=== PATIENT | male | born 1970 | race Caucasian/White ===

== ENCOUNTER 2025-02-27 07:41 | Outpatient (REF) | payer MEDICAID, SELFPAY ==
--- OUTSIDE RECORDS SUMMARY | 2025-02-27 07:44 | XMS_ITS | Patient Health Record ---
Author Organization [facility] Address [address] [place] [address] Care Team Providers Care Corrosion Engineer Name Role Phone NO, PCP Primary Care Provider [facility] Unavailable [phone] Reason For Referral No Information Plan Of Treatment No Information Insurance Providers Payer Name Payer Address Payer Phone Subscriber Number Group Number Insured Name Patient Relationship to Insured Coverage Start Date Coverage End Date [place] Medicaid Standard [address] [place] [phone] [id number] Paul Rodrigez Self - patient is the insured 4
--- OUTSIDE RECORDS SUMMARY | 2025-02-27 07:44 | XMS_ITS | Clinical Summary ---
Author Organization [facility] Address [address] [facility] [address] [place] [address] Care Team Providers Care Acid Operator Name Role Phone Unavailable Primary Care Provider Unavailabl e Encounters * This document contains information received from the source organization and may not represent a complete record from that organization. Date Type Department Care Team Description 12/20/2024 Population Health Risk Score [facility] ([facility]) Department [address] [address] Provider, Population Health Generic from Last 3 Months Social History Tobacco Use Types Packs/Day Years Used Date Smoking Tobacco: Never Assessed Sex and Gender Information Value Date Recorded Sex Assigned at Not on file Legal Sex Male 9:20 PM EDT Gender Identity Not on file Sexual Orientation Not on file Plan of Treatment Health Maintenance Due Date Last Done Comments CT Colonography 1972 Colonoscopy 1972 Colorectal Cancer Screening 1972 Depression Screening 1972 FIT DNA/Cologuard 1972 FIT 1972 FOBT 1972 Lipid Panel 1972 SDOH Screening 1972 Sigmoidoscopy 1972 Disability Screening 1972 Alcohol/Substance Use Screening 1984 Tobacco Screening 1984 Hepatitis C Screening 01/07/1990 Hepatitis B Vaccines (1 of 3 - 19+ 3-dose series) 01/07/1991 Pneumococcal Vaccine: 50+ Years (1 of 2 - PCV) 01/07/1991 COVID-19 Vaccine ( - 2024-2 6 season) 2025 11/13/2020, 10/16/2020 Influenza Vaccine (#1) 2025 DTaP/Tdap/Td Vaccines (3 - T d or Tdap) 08/27/2034 08/27/2024, 01/22/2022 RSV Patients and Patients Aged 60 years or older (1 - 1-dose 75+ series) 01/07/2047 HIV Screening Completed 04/02/2021, 04/02/2021 Zoster Vaccines Completed 06/23/2023, 01/22/2022 HIB Vaccines Aged Out No longer eligi ble based on patient's age to complete this topic HPV Vaccines Aged Out No longer eligi ble based on patient's age to complete this topic Hepatitis A Vaccines Aged Out No long er eligible based on patient's age to complete this topic IPV Vaccines Aged Out No longer eligi ble based on patient's age to complete this topic Meningococcal B Vaccine Aged Out No l onger eligible based on patient's age to complete this topic Meningococcal Vaccine Aged Out No shena poli eligible based on patient's age to complete this topic RSV under 20 months Aged Out No longe r eligible based on patient's age to complete this topic Rotavirus Vaccines Aged Out No longer eligible based on patient's age to complete this topic
--- OUTSIDE RECORDS SUMMARY | 2025-02-27 07:44 | XMS_ITS | Clinical Summary ---
Author Organization [facility] Address [address] [place] [address] Care Team Providers Care Wash Driller Name Role Phone Preston Dozier Primary Care Provider [phone] Source Comments PLEASE NOTE, if this patient is a minor, it may be UNLAWFUL to discuss sensitive information that is contained in these records (such as FAMILY PLANNING, MENTAL HEALTH or SUBSTANCE ABUSE) with the minor patient's parent or other person without the patient's specific authorization.[facility] Allergies No known active allergies Medications naloxone (NARCAN) 4 mg/actuation nasal sprayIndications: Chronic right-sided low back pain without sciatica,Degenera tive disc disease at L5-S1 level Place 1 [place] into the nostril(s) as needed for opioid reversal (Overdose) 1 Each 4 Active docusate sodium (COLACE) 100 mg capsuleIndication s:Constipation, unspecified constipation type Take 1 Capsule by mouth 2 (two) times daily 60 Capsule 1 4 Active SUBOXONE 8-[address] 0.5 Strips under the tongue 2 (two) times daily. Active naproxen (NAPROSYN) 500 mg tabletIndications :Sprain of anterior talofibular ligament of left ankle, initial encounter Take 1 Tablet by mouth 2 (two) times daily with a meal. 180 Tablet 5 Active amoxicillin-pot clavulanate (AUGMENTIN) 875-125 mg per tabletIndications :acute bacterial sinusitis Take 1 Tablet by mouth 2 (two) times daily Indications: acute bacterial infection of the sinuses. 14 Tablet 5 Active predniSONE (DELTASONE) 20 mg tabletIndications :Congested nose,Acute bacterial sinusitis Take 1 Tablet by mouth once daily. 4 Tablet 5 Active fexofenadine-pseu doephedrine (LOREN-D) 60-120 mg per 12 hr tabletIndications :Acute bacterial sinusitis Take 1 Tablet by mouth 2 (two) times daily. 30 Tablet 2 5 Active fluticasone (FLONASE) 50 mcg/actuation nasal sprayIndications: Acute bacterial sinusitis Place 1 [place] in both nostrils once daily. 16 g 5 Active azithromycin (ZITHROMAX) 250 mg tablet Take 2 tabs by mouth today, followed by 1 tab by mouth for four more days.. 6 Tablet 5 Active Active Problems Problem Noted Date Diagnosed Date Lumbar facet arthropathy 05/26/2023 Perifollicular petechiae of skin 12/08/2020 Other slipping, tripping and stumbling without falling, initial encounter 10/23/2019 Other joint derangement, not elsewhere classified, pelvic region and thigh 10/23/2009 Encounters Date Type Department Care Team Description 02/09/2025 4:00 PM EDT Telemedicine Visit [address] [phone] Preston Dozier PA 02/08/2025 Results Follow-Up [address] [phone] David Rangel NP 02/02/2025 11:00 AM EDT Office Visit [facility] [address] [place] [phone] Preston Dozier PA 01/23/2025 Interim Notes [address] [phone] Balbina Jimenez RN 01/20/2025 Interim Notes [address] [phone] Naima Cheney 01/18/2025 3:00 PM EDT Office Visit [address] [phone] David Rangel NP 12/29/2024 Interim Notes [facility] [address] [place] [phone] Preston Dozier PA 12/21/2024 10:40 AM EDT Office Visit [facility] [address] [place] [phone] Preston Dozier PA 12/13/2024 2:00 PM EDT Telemedicine Visit [facility] [address] [place] [phone] Preston Dozier PA 11/30/2024 1:00 PM EDT Office Visit [facility] [address] [facility] [place] [phone] Preston Dozier PA from Last 3 Months Immunizations Immunization Administration Dates Next Due Moderna COVID-19 Vaccine, re d cap blue label, 12+ Primary Series 11/13/2020,10/16/2020 TDAP 08/27/2024,01/22/2022 ZOSTER VACCINE, RECOMBINANT (SHINGRIX) ,01/22/2022 Family History Medical History Relation Name Comments Lung Disease Father Other Sister Relation Name Status Comments Father Alive Mother Alive Sister Alive Social History Tobacco Use Types Packs/Day Years Used Date Smoking Tobacco: Former Cigarettes Smokeless Tobacco: Current Tobacco Cessation:Ready to Q uit: Not Asked; Counseling Given: Not Answered Alcohol Use Standard Drinks/Week Comments Not Currently 0 (1 standard drink = 0.6 oz pur e alcohol) socially Social Connections Answer Date Recorded How often do you see or talk to people that you care about and feel close to? (For example: talking to friends on phone, visiting friends or family, going to restorationist or club meetings) 1 12/21/2024 Financial Resource Strain Answer Date R ecorded Hard to pay for: Utilities 2 12/21 Stress Answer Date Recorded Do you feel these kinds of stress these days? 2 12/21/2024 Physical Activity Answer Date Recorded Weekly Physical Activity 1 025 Food Insecurity Answer Date Recorded Within the past 12 months, y ou worried that your food would run out before you got money to buy more. 2 12/21/2024 Transportation Needs Answer Date Record ed Hard to pay for: Transportation 1 12/21/2024 Housing Stability Answer Date Recorded Hard to pay for: Rent/Mortgage payment 2 12/21/2024 Safety and Environment Answer Date Jewel rded How often does anyone, inclu ding family and friends, physically hurt you? 1 12/21/2024 Utilities Answer Date Recorded Hard to pay for: Utilities 2 12/21 Employment Answer Date Recorded Are you currently employed? 1 11/30 Sex and Gender Information Value Date Recorded Sex Assigned at Male 04/01/2021 5:28 AM PDT Legal Sex Male 1:15 PM PDT Gender Identity Male 04/01/2021 5:28 AM PDT Sexual Orientation Don't know 04/01/2021 5: 28 AM PDT Last Filed Vital Signs Vital Sign Reading Time Taken Comments Blood Pressure 108/65 02/02/2025 11:05 AM EDT Pulse 62 02/02/2025 11:05 AM EDT Temperature 36.8 C (98.2 F) 02/02/2025 11:05 AM EDT Respiratory Rate 16 02/02/2025 11:05 AM EDT Oxygen Saturation 98% 02/02/2025 11:05 AM EDT Inhaled Oxygen Concentration - - Weight 69.9 kg (154 lb) 02/02/2025 11:05 AM EDT Height 182.9 cm (6') 02/02/2025 11:05 AM EDT Body Mass Index 20.89 02/02/2025 11:05 AM EDT Plan of Treatment Upcoming Encounters Date Type Department Care Team (Late st Contact Info) Description 02/28/2025 4:00 PM EDT Office Visit [facility] [address] [place] [phone] Preston Dozier PA [address] [place] [address] 03/28/2025 4:00 PM EDT Office Visit [facility] [address] [facility] [place] [phone] Preston Dozier PA [address] [place] [address] Health Maintenance Due Date Last Done Comments Urine Drug Screen 1972 Imm-Pneumococcal 50+ (1 of 2 - PCV) 01/07/1991 CT Colonography 01/07/2017 FIT/gFOBT 01/07/2017 Fecal DNA 01/07/2017 Flexible Sigmoidoscopy 01/07/2017 Gib-[id number]-21 ( season) 2025 07/04/2021, 11/13/2020, 10/16/2020 LTBI Screening (#1) 05/16/2025 05/26/2024, Tobacco Cessation Counseling (#1) 09/08/2025 09/08/2024, 07/28/2024, 05/30/2024, Additional history exists Annual Wellness (Adult): Indicated (All Coverage) 12/21/2025 12/21/2024, 06/23/2023, 06/26/2021 Anxiety Screening 12/21/2025 12/21/2024 Hypertension Screening (#1) 02/02/2026 Diabetes Screening 05/16/2027 05/16/2024, 1 06/02/2020, 03/29/2021 Lipid Screening 05/16/2029 05/16/2024 Colonoscopy 04/10/2031 04/10/2021 Colorectal Cancer Screening 04/10/2031 Imm-DTaP/Tdap/Td (3 - Td or Tdap) 08/27/2034 08/27/2024, 01/22/2022 HIV Screening Completed 04/02/2021 Hepatitis C Screening Completed 04/02/2021 Imm-Zoster, Recombinant Completed 06/23/2023, 01/22 Alcohol and Drug Screen Addressed 12/22/19, 06/23/2023, 06/26/2021, Additional history exists Overridden with the intention of not completing the topic Depression Annual Screen Completed 12/21/2024, 06/02 Imm-Hepatitis B Discontinued Imm-Influenza Discontinued Procedures Procedure Name Priority Date/Time Associated Diagnosis Comments MRI, LUMBAR SPINE; W/O CONTRAST MATL Routine 02/01/2025 3:00 AM EDT Chronic bilateral low back pain without sciatica US GROIN RIGHT Routine 01/13/2025 3:00 AM EDT Right groin pain RADIOLOGIC EXAM CHEST 2 VIEWS Routine 05/26/2024 3:00 AM EST Cough, unspecified type Exposure to TB COMPREHENSIVE METABOLIC PANEL Routine 05/16/2024 2:36 PM EST LIPID PANEL Routine 05/16/2024 2:36 PM EST HISTORIC COLONOSCOPY 04/10/2021 3:00 AM EST HIV 1/2 AG & AB W/RFLX (4TH GEN) Routine 04/02/2021 8:49 AM EDT Epigastric abdominal pain Elevated LFTs HEPATITIS C AB W/RFLX HCV RNA, QT, RT PCR Routine 04/02/2021 8:49 AM EDT Epigastric abdominal pain Elevated LFTs from Last 3 Months or Most Recently Relevant to Health Maintenance Results * MRI, LUMBAR SPINE; W/O CONTRAST MATL (02/01/2025 3:00 AM EDT) 02/01/2025 3:00 AM EDT us David Rangel NP IMG MRI Final Result * US GROIN RIGHT (01/13/2025 3:00 AM EDT) 01/13/2025 3:00 AM EDT us Preston RIVERA IMG ULTRASOUND Final Result * RADIOLOGIC EXAM CHEST 2 VIEWS (05/26/2024 3:00 AM EST) 05/26/2024 3:00 AM EST us Preston RIVERA IMG XRAY Final Result * LIPID PANEL (05/16/2024 2:36 PM EST) CHOLESTEROL, TOTAL 108 <200 mg/dL [facility] HDL CHOLESTEROL 41 > OR = 40 mg/dL [facility] TRIGLYCERIDES 69 <150 mg/dL [facility] LDL-CHOLESTEROL 52 99 mg/dL (calc) [facility] Comment: Reference range: <100 Desirable range <100 mg/dL for primary prevention; <70 mg/dL for patients with CHD or diabetic patients with > or = 2 CHD risk factors. LDL-C is now calculated using the Sarah calculation, which is a validated novel method providing better accuracy than the Friedewald equation in the estimation of LDL-C. Jonathan ROBISON et al. ALEX. 2013;310(19): 5562-5616 (http://education.Pathogenetix/faq/HGU430) CHOL/HDLC RATIO 2.6 <5.0 (calc) [facility] NON-HDL CHOLESTEROL 67 <130 mg/dL (calc) [facility] Comment: For patients with diabetes plus 1 major ASCVD risk factor, treating to a non-HDL-C goal of <100 mg/dL (LDL-C of <70 mg/dL) is considered a therapeutic option. 05/16/2024 2:36 PM EST 05/16/2024 2:36 PM EST Preston RIVERA LAB - BLOOD DRAW Final Result [employer] [facility] [address] [place] [address], [facility] [address] [place] [phone] * (ABNORMAL) COMPREHENSIVE METABOLIC PANEL (05/16/2024 2:36 PM EST) Pathologist [facility] GLUCOSE 107(H) 65 - 99 mg/dL [facility] Comment: Fasting reference interval For someone without known diabetes, a glucose value between 100 and 125 mg/dL is consistent with prediabetes and should be confirmed with a follow-up test. UREA NITROGEN (BUN) 9 7 - 25 mg/dL [facility] CREATININE (blood) 0.73 0.70 - 1.30 mg/dL [facility] EGFR 109 > OR = 60 mL/min/1. 73m2 [facility] BUN/CREATININE RATIO SEE NOTE: [facility] Comment: Not Reported: BUN and Creatinine are within reference range. SODIUM 139 135 - 146 mmol/L [facility] POTASSIUM 4.4 3.5 - 5.3 mmol/L [facility] CHLORIDE 103 98 - 110 mmol/L [facility] CARBON DIOXIDE 28 20 - 32 mmol/L [facility] CALCIUM 10.0 8.6 - 10.3 mg/dL [facility] PROTEIN, TOTAL 7.2 6.1 - 8.1 g/dL [facility] ALBUMIN 4.7 3.6 - 5.1 g/dL [facility] GLOBULIN 2.5 1.9 - 3.7 g/dL (calc) [facility] ALBUMIN/GLOBULI N RATIO 1.9 1.0 - 2.5 (calc) [facility] BILIRUBIN, TOTAL 0.8 0.2 - 1.2 mg/dL [facility] [employer] [facility] ALKALINE PHOSPHATASE 76 35 - 144 U/L [facility] AST 18 10 - 35 U/L [facility] ALT 9 9 - 46 U/L [facility] 05/16/2024 2:36 PM EST 05/16/2024 2:36 PM EST us Preston RIVERA [facility] - BLOOD DRAW Edited Result - Final Performing Organization Address City/State/[facility] Co de Phone Number [employer] [address] [address], [place] [employer] [place] [address] [address] * HISTORIC COLONOSCOPY (04/10/2021 3:00 AM EST) 04/10/2021 3:00 AM EST us Preston RIVERA PROCEDURES Edited Result - Final * HEPATITIS C AB W/RFLX HCV RNA, QT, RT PCR (04/02/2021 8:49 AM EDT) HEPATITIS C ANTIBODY NON-REACT LAMINE NON-REACT LAMINE [place] [facility] SIGNAL TO CUT-OFF 0.02 <1.00 [facility] Comment: HCV antibody was non-reactive. There is no laboratory evidence of HCV infection. In most cases, no further action is required. However, if recent HCV exposure is suspected, a test for HCV RNA (test code 36008) is suggested. For additional information please refer to http://education.[employer]/faq/AKW76s7 (This link is being provided for informational/ educational purposes only.) Blood Blood / Unknown 04/02/2021 8 :49 AM EDT 04/02/2021 8:50 AM EDT Narrative [facility] [employer] - 04/02/2021 8:56 PM EDT PATIENT UNABLE TO VOID; ADVISED TO RETURN FOR COLLECTION. Columba Orrblank [facility] - BLOOD DRAW Final Result [facility] [address] [address], [facility] [address] [address] * HIV 1/2 AG & AB W/RFLX (4TH GEN) (04/02/2021 8:49 AM EDT) [facility] Signature HIV AG/AB, 4TH GEN NON-REAC TIVE NON-REAC TIVE [place] [facility] Comment: HIV-1 antigen and HIV-1/HIV-2 antibodies were not detected. There is no laboratory evidence of HIV infection. PLEASE NOTE: This information has been disclosed to you from records whose confidentiality may be protected by state law. If your state requires such protection, then the state law prohibits you from making any further disclosure of the information without the specific written consent of the person to whom it pertains, or as otherwise permitted by law. A general authorization for the release of medical or other information is NOT sufficient for this purpose. For additional information please refer to http://education.[employer].Airphrame/faq/YBN923 (This link is being provided for informational/ educational purposes only.) The performance of this assay has not been clinically validated in patients less than 2 years old. Blood Blood / Unknown 04/02/2021 8 :49 AM EDT 04/02/2021 8:50 AM EDT Narrative [facility] [employer] - 04/02/2021 8:56 PM EDT PATIENT UNABLE TO VOID; ADVISED TO RETURN FOR COLLECTION. [place] Julio [facility] LAB - BLOOD DRAW Final Result [facility] [employer] [facility] [address] [facility] [address] [place] [address], [facility] [facility] [address] [facility] [address] FLO[address] [address] from Last 3 Months or Most Recently Relevant to Health Maintenance Insurance [facility] [employer] [employer] Care Teams Wash Driller Relationship Specialty Start Date End Date Preston Dozier PA [address] [place] [address] PCP - General FAMILY MEDICINENICOLE 02/20/21
--- OUTSIDE RECORDS SUMMARY | 2025-02-27 07:44 | XMS_ITS | Encounter Summary ---
Author Organization [facility] Address [address] [place] [address] Care Team Providers Care Research Engineer [employer] Name Role Phone Preston Dozier Primary Care Provider [phone] Encounter Details Date Type Department Care Team (Late st Contact Info) Description 02/08/2025 Results Follow-Up [facility] [address] [place] [phone] David Rangel NP [address] [place] [address] Social History Tobacco Use Types Packs/Day Years Used Date Smoking Tobacco: Former Cigarettes Smokeless Tobacco: Current Alcohol Use Standard Drinks/Week Comments Not Currently [...] Don't know 04/01/2021 5: 28 AM PDT documented as of this encounter Functional Status * Is the patient deaf or have serious difficulty hearing? Answer Date of Assessment Author No 12/21/2024 10:00 AM PDT Britney Watson MA * Is the patient blind, or have serious difficulty seeing, even when wearing glasses? Answer Date of Assessment Author No 12/21/2024 10:00 AM PDT Britney Watson MA * Does the patient have serious difficulty walking or climbing stairs? Answer Date of Assessment Author No 12/21/2024 10:00 AM PDT Britney Watson MA * Does the patient have difficulty dressing or bathing? Answer Date of Assessment Author No 12/21/2024 10:00 AM PDT Britney Watson MA * Because of a physical, mental, or emotional condition, does the patient have difficulty doing errands alone such as visiting a doctor???s office or shopping? Answer Date of Assessment Author No 12/21/2024 10:00 AM PDT Britney Watson MA documented as of this encounter Mental Status * Because of a physical, mental, or emotional condition, does the patient have serious difficulty concentrating, remembering, or making decisions? Answer Entry Date Author No 12/21/2024 10:00 AM PDT Britney Watson MA documented in this encounter Plan of Treatment Upcoming Encounters Date Type Department Care Team (Late st Contact Info) Description 02/28/2025 4:00 PM EDT [facility] [address] [place] [phone] Preston Dozier PA [address] [place] [address] 03/28/2025 4:00 PM EDT [facility] Visit [facility] [address] [place] [address] Preston Dozier PA [address] [place] [address] documented as of this encounter Visit Diagnoses Not on filedocumented in this encounter Additional Health Concerns Assessment Noted Time PHQ-9 Depression Total Score: 2 06/23/19 24 3:52 PM PST A Depression follow-up plan has been documented for the patient 01/18/2025 6:19 PM PDT documented as of this encounter Care Teams Research Engineer Marine Equipment Relationship Specialty Start Date End Date Preston Dozier PA [address] [place] [address] PCP - General FAMILY MEDICINENICOLE 02/20/21 documented as of this encounter
--- OUTSIDE RECORDS SUMMARY | 2025-02-27 07:44 | XMS_ITS | Clinical Summary ---
Author Organization [facility] Address [address] [place] [address] Phone Care Team Providers Care Parts Sales Associate Name Role Phone Preston Dozier Primary Care Provider [phone] Encounters Date Type Department Care Team Description 01/13/2025 7:43 AM EDT - 01/13/2025 11:59 PM EDT Hospital Encounter [facility] Ultrasound [address] [place] [address] Right groin pain Discharge Disposition: Home or Self Care from Last 3 Months Immunizations Immunization Administration Dates Next Due Moderna SARS-CoV-2 COVID-19, mRNA, LNP-S, preservative free 11/13/2020,10/16/2020 Surgical History Surgery Date Site/Laterality Comments HERNIA REPAIR PROCEDURE: REPAIR INGUINAL HERNIA Medical History Medical History Date Comments Back pain DX:Back pain Family History Relation Name Status Comments Father Alive Mother Alive Sister Alive Social History Tobacco Use Types Packs/Day Years Used Date Smoking Tobacco: Every Day Cigarettes Alcohol Use Standard Drinks/Week Comments Yes 0 (1 standard drink = 0.6 oz pur e alcohol) Sex and Gender Information Value Date Recorded Sex Assigned at Not on file Legal Sex Male 9:23 AM EST Gender Identity Not on file Sexual Orientation Not on file Obstetrics History Last Filed Vital Signs Vital Sign Reading Time Taken Comments Blood Pressure 100/60 02/16/2024 2:54 PM EDT Pulse 84 02/16/2024 2:54 PM EDT Temperature - - Respiratory Rate - - Oxygen Saturation - - Inhaled Oxygen Concentration - - Weight 74.8 kg (165 lb) 01/21/2022 9:12 AM EDT Height 188 cm (6' 2 ) 01/21/2022 9:12 AM EDT Body Mass Index 21.18 01/21/2022 9:12 AM EDT Plan of Treatment Health Maintenance Due Date Last Done Comments Hepatitis B Vaccines (1 of 3 - 19+ 3-dose series) 01/07/1991 Pneumococcal Vaccine: 50+ Years (1 of 2 - PCV) 01/07/1991 Colorectal Cancer Screening: Colonoscopy 05/04/2022 HIV Screening 05/04/2022 Social Influencers of Health Screening 05/04/2022 Depression Screening 06/01/2024 COVID-19 Vaccine (4 - 2024-2 6 season) 2025 07/04/2021, 11/13/2020, 10/16/2020 Influenza Vaccine (#1) 2025 Cholesterol Screening (Lipid Panel) 05/16/2029 05/16/2024, 05/16/2024 DTaP,Tdap,and Td Vaccines (3 - Td or Tdap) 08/27/2034 08/27/2024, 01/22/2022 Hepatitis C Screening Completed 04/02/2021 Zoster Vaccines Completed 06/23/2023, 01/22/2022 HIB [...] on patient's age to complete this topic MMR Vaccines Aged Out No longer eligi ble based on patient's age to complete this topic Meningococcal ACWY Vaccine Aged Out N o longer eligible based on patient's age to complete this topic Meningococcal B Vaccine Aged Out No l onger eligible based on patient's age to complete this topic RSV Immunization Patients Under 20 months Aged Out No longer eligible b ased on patient's age to complete this topic Varicella Vaccines Aged Out No longer eligible based on patient's age to complete this topic Procedures Procedure Name Priority Date/Time Associated Diagnosis Comments US ABDOMEN LIMITED Routine 01/13/2025 8: 15 AM EDT Right groin pain from Last 3 Months Results * US Abdomen Limited (01/13/2025 8:15 AM EDT) Anatomical Region Laterality Modality Body Ultrasound 01/16/2025 11:4 2 AM EDT Impressions 01/16/2025 11:43 AM EDT Impression: No evidence of a right inguinal hernia is seen. Telejayme RIVERA ([id number]) -------- FINAL REPORT -------- Dictated By: Erica Mccartney Dictated Date: 01/16/2025 11:42 ET Assigned Physician: Erica Mccartney Reviewed and Electronically Signed By: Erica Mccartney Signed Date: 01/16/2025 11:43 ET Workstation ID: [id number] Transcribed By: Self Edit Transcribed Date: 01/16/2025 11:42 ET Narrative 01/16/2025 11:43 AM EDT History: Right groin pain. Question hernia. Findings: High resolution real-time imaging of the right inguinal region was performed, without and with Valsalva maneuver. No inguinal hernia is seen. Few morphologically normal interval lymph nodes are demonstrated. Procedure Note Erica Mccartney MD - 01/16/2025 History: Right groin pain. Question hernia. Findings: High resolution real-time imaging of the right inguinal region wasperformed, without and with Valsalva maneuver. No inguinal hernia is seen. Few morphologically normal interval lymph nodes are demonstrated. IMPRESSION: Impression: No evidence of a right inguinal hernia is seen. Telejayme RIVERA ([id number]) -------- FINAL REPORT -------- Dictated By: Erica Mccartney Dictated Date: 01/16/2025 11:42 ET Assigned Physician: Eirca Mccartney Reviewed and Electronically Signed By: Erica Mccartney Signed Date: 01/16/2025 11:43 ET Workstation ID: [id number] Transcribed By: Self Edit Transcribed Date: 01/16/2025 11:42 ET Preston RIVERA [facility] US PROCEDURES Final Result from Last 3 Months Insurance MEDICAID - [place] Care Teams Parts Sales Associate Relationship Specialty Start Date End Date Preston Dozier PA [address] [place] [address] PCP - General Internal Medicine 04/03/21
== END 2025-02-27 07:42 | disposition home or self-care (01) ==
LOC: CF 07:41
DX: M51.372 Other intervertebral disc degeneration, lumbosacral region with discogenic back pain and lower extremity pain (principal); G89.29 Other chronic pain
CPT/HCPCS: 99212

== ENCOUNTER 2025-02-27 08:58 | Outpatient (AMB) | payer MEDICAID, SELFPAY ==
--- NOTE | 2025-02-27 09:02 | A.SPINEOV_ITS ---
Vital Signs 02/27/25 09:04 Height 6 ft 2 in Weight 160 lb BMI 20.5 Intake Visit Reasons: LBP Intake Note: Mr. Cooper is here today c/o low back pain. Casing Crew Required: No Allergies No Known Allergies Allergy (Verified 02/27/25 09:05) Physical Exam Vital Signs: BMI result Body Mass Index 20.5 Assessment & Plan Assessment & Plan (1) Back pain: Code(s): M54.9 - Dorsalgia, unspecified Category: Medical Plan Dear David, Thank you for referring Mr Cooper to our office today. 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 He generally would just deal with this by taking little Tylenol and avoiding things that strain his back. He has been followed by the pain management Center at [facility]. He underwent facet blocks last year with decent success in his due to undergo radiofrequency ablation of the facets. He more recently had a flare-up when he was at a rope swing and at the end of the day noticed his back was more uncomfortable and he had numbness in the front of his thigh. Again, aggravated with sitting. He saw a chiropractor for this but it really was not much help. He has done physical therapy remotely in the past, but nothing recently. He comes in today follow up on his MRI that was done at [facility]. PMH: Otherwise healthy, he had a rotator cuff surgery and a cholecystectomy but other than that denies any systemic disease or major medical problems. Social hx: Does not smoke, drink use any recreational drugs Medications: None Allergies: None Physical exam: Awake alert oriented no acute distress, strength and reflexes normal Imaging review: Lumbar MRI done at [facility] shows severe degenerative disc disease at L5-S1 and L4-5, with Modic endplate changes. He has facet arthropathy. He has bilateral neuroforaminal narrowing at L4. No evidence of acute disc herniation. No evidence of fracture. Impression: 55-year-old male presents for evaluation of acute on chronic back pain, for which he has evidence of severe degenerative disc disease from L4-S1 with Modic endplate changes type 1 and foraminal narrowing at L4. 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 He certainly has lots of reasons on his MRI to have pain. However, surprisingly he remains relatively active, playing golf 2 to 3 times a week and is able to participate in recreational activities with his kids like kayaking etc.. Generally we reserve surgical intervention for disc degeneration like his for patients who have come to the end of the road of their ability to function with the pain. Right now I think he is still able to manage along fairly well so I did not recommend he undergo lumbar fusion surgery to treat the degenerative discs. He also has a slight spondylolisthesis at L3-4, which is telling me he has some early degeneration starting there. If he underwent a 2 level fusion that would put him potentially at increased risk for having the adjacent segment disease at this level. Therefore, I recommended he just proceed conservatively, follow up with his doctor at the pain management Center for the ablation and come back and see me down the road if things accelerate to where he is not able to participate in activities that he enjoys or has trouble being able to work etc.. I reassured him the numbness of his thigh should get better with time, I think he just irritated the L4 nerve where he has foraminal stenosis when he was on the rope swing. Thank you for allowing us to care for your patient. The total time spent with this visit with this patient was 45 minutes reviewing history, physical exam, lumbar imaging review, and implementation of treatment plan or further diagnostic testing Demario Salazar MD,PhD [facility] Coding Level of Care Code New Pt Level 4 (32401) Diagnoses Back pain M54.9
[2025-02-27 09:04] VITALS: BMI 20.5
== END 2025-02-27 09:34 | disposition home or self-care (01) ==
LOC: HO.HNS 08:59
PROVIDERS: Visit Provider Physician Assistant
DX: M54.9 Dorsalgia, unspecified (principal)
CPT/HCPCS: 99204